=== PATIENT | male | born 1975 | race Caucasian/White ===

== ENCOUNTER 2020-07-15 08:41 | Emergency (ER) | payer BC, OTHER ==
[2020-07-15 08:59] VITALS: PULSE 76
[2020-07-15] MEDS ORDERED: Sodium Chloride 0.9% 10 ML Syringe FLUSH PRN (09:06)
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
[2020-07-15] MEDS ORDERED: Iopamidol 612 MG/ML 100 ML Bottle IVPUSH ONE (09:18)
[2020-07-15] MEDS ORDERED: Sodium Chloride 0.9% 10 ML Syringe FLUSH ONE (09:19)
[2020-07-15] MEDS ORDERED: Ketorolac 30 MG/ML SDV IVPUSH SCH (09:30)
--- NOTE | 2020-07-15 10:22 | CT ---
Head CT Technique: Multiple axial sections through the brain were obtained. Intravenous contrast was not utilized. Reconstructed coronal and sagittal images were obtained. Comparison: No prior intracranial imaging is available. Findings: Ventricles along with basal cisterns and sulci over the convexities are within normal limits for the patient's age. No abnormal parenchymal densities are seen. No evidence of intracranial hemorrhage. No midline shift or mass-effect is seen. Bone window settings were reviewed. Visualized mastoid sinuses and paranasal sinuses show nothing acute. No acute calvarial abnormality is appreciated. Impression: 1. Nothing acute is appreciated on noncontrast head CT study. Diagnostic code #1
--- NOTE | 2020-07-15 10:29 | CT ---
CT lumbar spine Technique: Multiple axial sections were obtained from above the the T11-12 disc inferiorly through the L5-S1 disc. Reconstructed coronal and sagittal images were also obtained. Comparison: Prior lumbar spine plain film study of 02/25/11. Findings: Scattered anterior endplate osteophytes are seen throughout the spine. Prior surgery is noted at L5-S1 with intervertebral disc fixation and trans-pedicle screws above and below the L5-S1 disc. Other disc spaces are maintained. L4-5 shows moderate central canal stenosis. Neural foramina show no discrete stenosis. There is no fracture being seen. No acute disc herniation is seen. Atherosclerotic calcification noted within the abdominal aorta with no aneurysm. Small cyst is felt to be present within the right kidney measuring 9 mm. Impression: 1. Prior surgery. 2. Mild degenerative change as noted above. 3. No acute fracture is seen. 4. Other findings believed to be incidental as noted above. Diagnostic code #2
--- NOTE | 2020-07-15 10:32 | CT ---
CT cervical spine Technique: Multiple axial sections were obtained from above the C1 level inferiorly through the T3 vertebral body. Reconstructed coronal and sagittal images were obtained. Findings: Moderate disc space narrowing is noted at C5-6 and C6-7 with anterior osteophytes and posterior osteophytes noted mostly at C5-6. Minimal disc space narrowing is noted at C4-5 with slight anterior osteophytes. Mild degenerative change is noted between the dens and anterior arch of C1. Mild scattered degenerative change within the apophyseal joints are noted. Uncovertebral joint shows only minimal degenerative spurring at C5-6. Mild left-sided neural foraminal stenosis is noted at C5-6. Other neural foramina are felt to be fairly well patent. No fracture or subluxation is seen. Visualized lung apices are clear. No abnormal subluxation is seen. Impression: 1. Degenerative change as noted above. 2. No acute fracture or subluxation is seen. Diagnostic code #2
--- NOTE | 2020-07-15 10:38 | CT ---
CT neck Technique: Multiple axial sections through the neck were obtained. Reconstructed coronal and sagittal images were obtained. Comparison: No prior neck imaging is available. Findings: Visualized lung apices are clear. Thyroid gland appears without nodule. Submandibular and parotid salivary glands are normal. Visualized paranasal sinuses show nothing acute. Paravertebral soft tissue structures are within normal limits. No soft tissue abnormality is seen. No soft tissue hematoma is seen. Degenerative change is noted within the cervical spine which was described on cervical spine CT exam. No acute osseous abnormality is appreciated within the maxillofacial structures. Impression: 1. Nothing acute is appreciated on CT study of the neck. Diagnostic code #1
[2020-07-15 11:09] VITALS: BP 165/93
== END 2020-07-15 11:07 | disposition home or self-care (01) ==
LOC: JD.ED 08:41
DX: S10.93XA Contusion of unspecified part of neck, initial encounter (principal); Y04.0XXA Assault by unarmed brawl or fight, initial encounter
CPT/HCPCS: 70450; 70450-26; 70491; 70491-26; 72125; 72125-26; 72131; 72131-26; 96374; 99283; 99284-25; J1885